=== PATIENT | female | born 1950 | race Caucasian/White ===

== ENCOUNTER 2017-01-11 19:50 | Emergency (ER) | payer OTHER ==
[~2017-01-11 19:50] MED LIST: BABY ASPIRIN CH81 MG PO; ELIQUIS5 MG PO; FLONASE ALLERG9.9 ML NAS; HYDROCHLOROTHIA25 M1 PO; LEVOTHYROXINE75 MCG PO; LOSARTAN POTAS100 MG PO; NITROSTAT 0.4MG1 BO2 SL; NORVASC 5MG TAB5 MG PO; PREDNISONE10 M2 PO; PROAIR HFA8.5 GM INH; PROPAFENONE HC150 MG PO; SIMVASTATIN20 MG PO; VALSARTAN320 M1 PO
--- NOTE | 2017-01-11 20:13 | ED GENERAL ADULT ---
History of Present Illness General Chief Complaint: Dizziness Stated Complaint: DIZZINESS Source: patient, family Exam Limitations: no limitations Vital Signs & Intake/Output Vital Signs & Intake/Output Vital Signs Date Time Temp Pulse Resp B/P B/P Pulse O2 O2 Flow FiO2 Mean Ox Delivery Rate 01/11 2210 97.6 68 20 134/65 95 Room Air 01/11 2023 Room Air 01/11 2007 97.7 73 18 136/66 97 Room Air Allergies Coded Allergies: amlodipine (UNKN 01/11/17) Reconcile Medications Albuterol Sulfate (Proair Hfa) 90 MCG HFA.AER.AD 2 PUF INH Q4-6 PRN PRN SOB Amlodipine (Norvasc 5MG Tab) 5 MG TABLET 5 MG PO DAILY DIRTECTED (Reported ) Apixaban (Eliquis) 5 MG TABLET 5 MG PO BID irregular heart rhthym Aspirin (Children's Aspirin) 81 MG TAB.CHEW 81 MG PO DAILY HEALTH (Reported) Fluticasone Propionate (Flonase Allergy Relief) 50 MCG/ACTUATION SPRAY.SUSP 1 SPRAY TRINY BID PRN CONGESTION Hydrochlorothiazide 25 MG TABLET 1 TAB PO DAILY WATER PILL (Reported) Levothyroxine Sodium 75 MCG TABLET 1 TAB PO DAILY AC THYROID (Reported) Losartan Potassium 100 MG TABLET 100 MG PO DAILY DIRECTED (Reported) PROPAFENONE HCL (Propafenone HCl) 150 MG TABLET 150 MG PO BID DIRECTED ( Reported) Simvastatin (Zocor) 20 MG TAB 20 MG PO DAILY DIRECTED (Reported) Valsartan 320 MG TABLET 1 TAB PO DAILY HEART (Reported) Triage Note: PER PT LAST NIGHT DURING NIGHT WOKE TO GO TO BE, WAS SO DIZZY UNABLE TO GET UP GOT SWEATY AND NAUSEOUS AND WAS UNABLE TO MOVE, TODAY FELT BETTER, GL ACCOUNTANT WENT OUTSIDE AND GOT SO DIZZY FELL BACKWARDS ONTO GRASS NO SWEATING OR NAUSEA TODAT REPORTS ?AFIB Triage Nurses Notes Reviewed? yes Onset: Abrupt Duration: hour(s): Timing: recent history HPI: 01/11/17 9:25 PM 66-year-old female presents to the emergency department for dizziness. According to the patient last night while she was in bed she developed severe dizziness and nausea. She said she actually lied down on the bathroom floor because she felt so dizzy. She denies chest pain headache or abdominal pain. She does admit to nasal congestion. She said today she had a second episode of severe dizziness. She denies chest pain or shortness of breath. She says she has a past medical history of MALT lymphoma and is status post radiation approximately 5 months ago. He also has a history of hypertension. Past History Travel History Traveled to [place] past 21 day No Medical History Any Pertinent Medical History? see below for history Neurological: NONE EENT: TMJ Cardiovascular: AFIB, hypertension, hyperlipidemia Respiratory: NONE Gastrointestinal: REFLUX Hepatic: NONE Renal: NONE Musculoskeletal: NONE Psychiatric: NONE Endocrine: THYROID Blood Disorders: NONE Cancer(s): NONE LODGING HOUSE KEEPER/Reproductive: NONE History of MRSA: No History of VRE: No History of CDIFF: No Surgical History Surgical History: non-contributory Psychosocial History Who do you live with Patient/Self Services at Home None What is your primary language Romanian Tobacco Use: Never used Family History Hx Contributory? No Review of Systems Review of Systems Constitutional: Reports: no symptoms. EENTM: Reports: see HPI. Respiratory: Reports: no symptoms. Cardiovascular: Denies: chest pain. GI: Denies: abdominal pain. Genitourinary: Reports: no symptoms. Musculoskeletal: Reports: no symptoms. Skin: Reports: no symptoms. Neurological/Psychological: Reports: see HPI. Denies: headache. Hematologic/Endocrine: Reports: no symptoms. Immunologic/Allergic: Reports: no symptoms. All Other Systems: Reviewed and Negative Physical Exam Physical Exam General Appearance: well developed/nourished, alert, awake, anxious, mild distress Head: atraumatic, normal appearance Eyes: Bilateral: normal appearance, PERRL, EOMI. Ears, Nose, Throat: normal pharynx, normal ENT inspection Neck: normal inspection, supple Respiratory: normal breath sounds, chest non-tender, no respiratory distress Cardiovascular: regular rate/rhythm Peripheral Pulses: 4+ radial (R), 4+ radial (L) Gastrointestinal: soft, non-tender Back: normal range of motion Extremities: pedal edema Neurologic/Psych: no motor/sensory deficits, awake, alert, oriented x 3 Skin: intact, normal color, warm/dry Core Measures ACS in differential dx? No CVA/TIA Diagnosis: No Severe Sepsis Present: No Septic Shock Present: No Progress Differential Diagnoses I considered the following diagnoses in my evaluation of the patient: [Vertigo, symptomatic hypertension, symptomatic hypotension, TIA, adverse drug event, acute coronary syndrome, dysrhythmia] Plan of Care: Orders Procedure Date/time Status MISTAKE 01/11 2301 Active TROPONIN LEVEL 01/12 2228 Complete EKG 01/12 2228 Active URINALYSIS 01/12 2112 Complete TROPONIN LEVEL 01/11 1959 Complete PARTIAL THROMBOPLASTIN TIME 01/11 1959 Complete PROTHROMBIN TIME 01/11 1959 Complete COMPREHENSIVE METABOLIC PANEL 01/11 1959 Complete CBC WITHOUT DIFFERENTIAL 01/11 1959 Complete EKG 01/11 1954 Active Current Medications Sig/Danis Start time Last Medication Dose Stop Time Status Admin Ceftriaxone Sodium 1,000 MG ONCE ONE 01/11 2115 CAN (Rocephin) 01/12 2116 Laboratory Tests 01/11/170: Troponin I < 0.01 01/11/172112: Urine Color YEL, Urine Clarity CLEAR, Urine pH 6.0, Ur Specific [place] 1.010, Urine Protein NEG, Urine Ketones NEG, Urine Nitrite NEG, Urine Bilirubin NEG, Urine Urobilinogen 1.0, Ur Leukocyte Esterase NEG, Ur Microscopic SEDIMENT EXAMINED, Urine RBC RARE, Urine WBC RARE, Ur Epithelial Cells RARE, Urine Hemoglobin TRACE-INTACT, Urine Glucose NEG 01/11/17 2020: Anion Gap 10, Estimated GFR 55 L, BUN/Creatinine Ratio 17.0, Glucose 125 H, Calcium 8.9, Total Bilirubin 0.8, AST 49 H, ALT 28, Alkaline Phosphatase 88, Troponin I < 0.01, Total Protein 7.3, Albumin 4.0, Globulin 3.3, Albumin/ Globulin Ratio 1.2, PT 11.3, INR 1.08, APTT 30, CBC w Diff NO MAN DIFF REQ, RBC 3.93 L, MCV 88.2, MCH 30.4, RDW 13.3, MPV 7.9, Gran % 58.5, Lymphocytes % 25.5, Monocytes % 14.4 H, Eosinophils % 1.1, Basophils % 0.5, Absolute Granulocytes 2.6, Absolute Lymphocytes 1.1 L, Absolute Monocytes 0.6, Absolute Eosinophils 0 , Absolute Basophils 0, PUBS MCHC 34.5 Initial ED EKG: NSR Prior EKG: unchanged Repeat EKG: unchanged Departure Departure Disposition: STILL A PATIENT Condition: Stable Clinical Impression Primary Impression: Dizzinesses Referrals: JACKSON VELASCO,KAYLI Pickett (PCP/Family) Departure Forms: Customer Survey General Discharge Information Comments 01/11/17 11:28 PM Patient asymptomatic in the emergency room. Labs and CT scan unremarkable EKG normal 2 Troponin negative 2 She has dizziness of uncertain etiology. She will follow-up with her geophysics scientist on Friday return to the emergency department if worse., Critical Care Note Critical Care Note Critical Care Time: non-applicable
[2017-01-11 20:25] LABS: ABSOLUTE BASOPHIL COUNT 0 /CUMM (0.0-0.2); ABSOLUTE EOSINOPHIL COUNT 0 /CUMM (0.0-0.7); ABSOLUTE GRANULOCYTE CT 2.6 /CUMM (1.4-6.5); ABSOLUTE LYMPH COUNT 1.1 /CUMM (1.2-3.4); ABSOLUTE MONOCYTE COUNT 0.6 /CUMM (0.10-0.60); BASOPHIL % 0.5 % (0.0-2.0); EOSINOPHIL % 1.1 % (0-5); GRANULOCYTE % 58.5 % (42.2-75.2); HEMATOCRIT 34.7 % (37-47); MEAN CORPUSCULAR HGB 30.4 PG (27.0-31.0); MEAN CORPUSCULAR HGB CONC 34.5 G/DL (33.0-37.0); MEAN CORPUSCULAR VOLUME 88.2 FL (81.0-99.0); MEAN PLATELET VOLUME 7.9 FL (7.4-10.4); PLATELET COUNT 212 /CUMM (130-400); RBC DISTRIBUTION WIDTH 13.3 % (11.5-14.5); RED BLOOD CELL CT 3.93 /CUMM (4.20-5.40); WHITE BLOOD CELL COUNT 4.5 /CUMM (4.8-10.8)
[2017-01-11 20:35] LABS: PT 11.3 SEC (9.4-12.5); PTT 30 SEC (25-37)
--- NOTE | 2017-01-11 21:41 | CT SCAN REPORT ---
EXAMINATION: CT HEAD WITHOUT CONTRAST CLINICAL INFORMATION: Dizziness, headache COMPARISON: None TECHNIQUE: Contiguous axial imaging was performed from the skull base to vertex without intravenous administration of contrast. DLP: 614 mGy-cm FINDINGS: There is no evidence of acute intracranial hemorrhage or territorial infarction. No abnormal mass effect or midline shift is seen. Shah to white matter differentiation is well preserved. No extra-axial fluid collections are identified. The ventricles are normal in size. There is no abnormal attenuation within the brain parenchyma. The osseous structures and soft tissues are normal. The mastoid air cells and visualized portions of the paranasal sinuses are well aerated. IMPRESSION: No acute intracranial pathology.
--- NOTE | 2017-01-11 21:42 | RADIOLOGY REPORT ---
EXAMINATION: XR PORTABLE CHEST CLINICAL INFORMATION: Shortness of breath and cough COMPARISON: Chest x-ray 04/03/2016 TECHNIQUE: Portable AP view of the chest was obtained. FINDINGS: Heart size and pulmonary vascularity is within normal limits. The lungs are mildly hypoexpanded but clear. No focal consolidation or atelectasis is seen. There is no pneumothorax or pleural effusion. No acute bony abnormality is seen. IMPRESSION: Mildly hypoexpanded but clear lungs with no focal findings and no change from prior.
[2017-01-11 23:48] VITALS: BP 136/63
== END 2017-01-11 23:53 ==
LOC: ERH 19:50
PROVIDERS: Emergency Medicine
DX: R42 Dizziness and giddiness (principal)
CPT/HCPCS: 86618; 87798; 81001; 93005; 93010